=== PATIENT | female | born 1990 | race Caucasian/White ===

== ENCOUNTER 2020-06-10 12:59 | Emergency (ER) | payer SELFPAY ==
[~2020-06-10] VITALS: Ht 162.6 cm; Wt 63.6 kg
[2020-06-10 13:04] VITALS: Ht 162.6 cm; Wt 63.6 kg
[2020-06-10 13:24] LABS: BILIRUBIN NEGATIVE (NEGATIVE); KETONE NEGATIVE (NEGATIVE); NITRITE NEGATIVE (NEGATIVE); UROBILINOGEN NORMAL (NORMAL)
[2020-06-10 13:25] LABS: BACTERIA FEW /hpf (NONE SEEN); EPITHELIAL CELLS 0-5 /hpf (0-5); RED CELLS - URINE 0-5 /hpf (0-5); WHITE CELLS - URINE 0-5 /hpf (0-5)
[2020-06-10 14:02] LABS: BASOPHILS 0.2 % (0-2); EOSINOPHILS 0.4 % (0-7); HEMATOCRIT 43.1 % (36.0-48.0); HEMOGLOBIN 14.4 g/dL (12-16); IMMATURE GRANULOCYTES 0.2 % (0-5); LYMPHOCYTES 33.8 % (15-50); MCH 30.6 pg (26.0-34.0); MCHC 33.4 g/dL (31.0-37.0); MCV 91.5 fL (80.0-100.0); MONOCYTES 3.5 % (2-11); NEUTROPHILS 61.9 % (40-80); PLATELET COUNT 252 10x3/uL (130-400); RBC 4.71 10x6/uL (4.00-5.40); RDW 12.9 % (11.5-14.5); WBC 9.3 10x3/uL (4.8-10.8)
[2020-06-10 14:09] LABS: CALC OSMOLALITY 278 mosm/kg (275-300); CALCIUM 8.8 mg/dL (8.5-10.1); CARBON DIOXIDE 27.8 mmol/L (21.0-32.0); CHLORIDE - SERUM 104 mmol/L (98-107); CREATININE - SERUM 0.9 mg/dL (0.6-1.3); GLUCOSE 73 mg/dL (74-106); SODIUM 140 mmol/L (136-145); UREA NITROGEN 15 mg/dL (7-18); eGFR NON AFRICAN AMERICAN 78 mL/min (90-120)
[2020-06-10 14:11] LABS: HCG SERUM POSITIVE (NEGATIVE)
[2020-06-10 14:20] LABS: ALBUMIN 3.8 g/dL (3.4-5.0); ALKALINE PHOSPHATASE 69 U/L (30-120); ALT (SGPT) 15 U/L (10-68); BILIRUBIN - TOTAL 0.19 mg/dL (0.2-1.3); HCG - QUANTITATIVE (MATERNAL) 114 mIU/mL; PROTEIN - SERUM 7.5 g/dL (6.4-8.2)
[2020-06-10 16:42] VITALS: BP 128/88
== END 2020-06-10 16:43 | disposition home or self-care (01) ==
LOC: D.ER 12:59
PROVIDERS: Family Medicine
DX: N93.9 Abnormal uterine and vaginal bleeding, unspecified (principal)

== ENCOUNTER 2020-07-13 09:39 | Emergency (ER) | payer MEDICAID ==
[~2020-07-13] VITALS: Ht 162.6 cm; Wt 70.5 kg
[2020-07-13 09:53] VITALS: BP 169/66; Ht 162.6 cm; Wt 70.5 kg
[2020-07-13 10:36] LABS: BASOPHILS 0.4 % (0-2); EOSINOPHILS 1.1 % (0-7); IMMATURE GRANULOCYTES 0.1 % (0-5); LYMPHOCYTES 32.2 % (15-50); MCH 31.6 pg (26.0-34.0); MCHC 34.1 g/dL (31.0-37.0); MCV 92.6 fL (80.0-100.0); MEAN PLATELET VOLUME 10.4 fL (7.4-10.4); NEUTROPHILS 62.2 % (40-80); PLATELET COUNT 240 10x3/uL (130-400); RBC 4.75 10x6/uL (4.00-5.40); RDW 13.4 % (11.5-14.5); WBC 9.6 10x3/uL (4.8-10.8)
[2020-07-13 10:46] LABS: CALC OSMOLALITY 270 mosm/kg (275-300); CARBON DIOXIDE 25.2 mmol/L (21.0-32.0); CHLORIDE - SERUM 102 mmol/L (98-107); CREATININE - SERUM 0.8 mg/dL (0.6-1.3); GLUCOSE 91 mg/dL (74-106); HCG SERUM POSITIVE (NEGATIVE); POTASSIUM - SERUM 3.6 mmol/L (3.5-5.1); SODIUM 135 mmol/L (136-145); UREA NITROGEN 15 mg/dL (7-18); eGFR NON AFRICAN AMERICAN 90 mL/min (90-120)
[2020-07-13 10:55] LABS: ALBUMIN 4.1 g/dL (3.4-5.0); ALKALINE PHOSPHATASE 70 U/L (30-120); ALT (SGPT) 92 U/L (10-68); AMYLASE - SERUM 41 U/L (25-115); BILIRUBIN - TOTAL 0.37 mg/dL (0.2-1.3); LIPASE 102 U/L (73-393); PROTEIN - SERUM 7.9 g/dL (6.4-8.2)
[2020-07-13 11:24] LABS: BACTERIA FEW HPF (NONE SEEN); BILIRUBIN NEGATIVE (NEGATIVE); EPITHELIAL CELLS RARE /hpf (0-5); KETONE NEGATIVE (NEGATIVE); NITRITE NEGATIVE (NEGATIVE); UROBILINOGEN NORMAL mg/dL (< 2); WHITE CELLS - URINE NSEEN HPF (0-4)
== END 2020-07-13 14:22 | disposition home or self-care (01) ==
LOC: D.ER 09:39
PROVIDERS: Family Medicine
DX: R74.01 Elevation of levels of liver transaminase levels (principal); O20.0 Threatened abortion; Z3A.00 Weeks of gestation of pregnancy not specified; O26.859 Spotting complicating pregnancy, unspecified trimester